=== PATIENT | female | born 1945 | race Two or more races ===

== ENCOUNTER 2020-05-08 09:57 | Day surgery (SDC) | payer OTHER ==
[~2020-05-08 09:57] MED LIST: CHILDREN'S ASPI81 MG PO; COZAAR50 MG PO; FOSAMAX70 MG PO; LEVOTHYROXINE25 MCG PO; LIPITOR20 MG PO; VERAPAMIL HCL80 MG PO
[2020-05-08] MEDS ORDERED: DOXYCYCLINE HY100 MG PO (15:50)
[2020-05-08] MEDS ORDERED: Tylenol #3 PO (15:50)
== END 2020-05-08 17:40 | disposition home or self-care (01) ==
LOC: CIR.AMB 09:57
PROVIDERS: ATTEND Obstetrics & Gynecology
DX: D25.0 Submucous leiomyoma of uterus (principal); N84.0 Polyp of corpus uteri; Z20.828 Contact with and (suspected) exposure to other viral communicable diseases